=== PATIENT | male | born 1995 | race Two or more races ===

== ENCOUNTER 2023-05-19 09:26 | Emergency (ER) | payer OTHER ==
[~2023-05-19] VITALS: Ht 165.1 cm; Wt 86.9 kg
[2023-05-19 09:41] VITALS: BP 119/76; PULSE 89; RESP 16; O2SAT 98
[2023-05-19 09:52] LABS: Basophils # (auto) 0.1 10 ^3/uL (0-0.2); Basophils % (auto) 1.1 % (0.0-2.0); Eosinophils # (auto) 0.1 10 ^3/uL (0-0.8); Eosinophils % (auto) 1.8 % (0.0-7.0); Hematocrit 49.3 % (41.0-53.0); Hemoglobin 16.8 g/dL (13.5-17.5); Lymphocytes # (auto) 1.9 10 ^3/uL (0.4-5.4); Lymphocytes % (auto) 26.1 % (10.0-50.0); Mean Corpuscular Hemoglobin 28.7 pg (28.0-32.0); Mean Corpuscular Volume 84.5 fL (80.0-100.0); Monocytes # (auto) 0.7 10 ^3/uL (0-1.3); Monocytes % (auto) 10.3 % (0.0-12.0); Neutrophils # (auto) 4.4 10 ^3/uL (1.6-8.6); Neutrophils % (auto) 60.7 % (37.0-80.0); Nucleated Red Blood Cells % 1.1 %; Red Blood Cells 5.83 10^6/uL (4.5-5.90); Red Cell Distribution Width 13.7 % (11.8-14.3); White Blood Cell 7.3 10^3/uL (4.4-10.8)
[2023-05-19 11:29] LABS: Urine Bacteria NONE SEEN /hpf (None Seen); Urine Blood 2+ /uL (Negative); Urine Clarity Clear (Clear); Urine Color Yellow (Yellow); Urine Mucus FEW (None Seen); Urine Protein, UAD 1+ (Negative); Urine Specific Gravity 1.032 (1.001-1.035); Urine WBC 2 /hpf (0 - 3)
[2023-05-19 11:36] LABS: Albumin 4.4 g/dL (3.4-5.0); BUN/Creatinine Ratio 13.5 (10.0-20.0); Bilirubin, Total 0.6 mg/dL (0.2-1.0); Calcium 9.5 mg/dL (8.5-10.1)
[2023-05-19] MEDS ORDERED: MECL25CH38 PO (12:37)
== END 2023-05-19 12:54 | disposition home or self-care (01) ==
LOC: ER 09:26
DX: R42 Dizziness and giddiness (principal)
CPT/HCPCS: 36415; 70450; 80053; 81001; 82962; 84484; 85025

== ENCOUNTER 2024-02-03 14:36 | Emergency (ER) | payer SELFPAY ==
[~2024-02-03] VITALS: Ht 165.1 cm; Wt 85.6 kg
[~2024-02-03 14:36] MED LIST: MECL25CH38 PO
[2024-02-03 15:19] VITALS: BP 127/71; PULSE 114; RESP 18; TEMP 99.4; O2SAT 97
[2024-02-03] MEDS: cefTRIAXone SOD 1,000 MG VL IM ONE (15:32)
[2024-02-03] MEDS ORDERED: CEPH500C PO (15:34)
== END 2024-02-03 15:45 | disposition home or self-care (01) ==
LOC: ER 14:36
DX: J03.90 Acute tonsillitis, unspecified (principal); Z79.899 Other long term (current) drug therapy
CPT/HCPCS: 96372; 99283; J0696